=== PATIENT | female | born 1955 | race Asian ===

== ENCOUNTER → 2017-06-25 | Outpatient (CLI) | payer OTHER | LOC: FIMAGING 12:45 | PROVIDERS: ATTEND Obstetrics & Gynecology | DX: Z12.31 Encounter for screening mammogram for malignant neoplasm of breast (principal) | CPT/HCPCS: G0202 ==

== ENCOUNTER → 2018-04-23 | Outpatient (CLI) | payer OTHER | LOC: BMCIMAGING 10:16 | PROVIDERS: ATTEND Internal Medicine | DX: M19.041 Primary osteoarthritis, right hand (principal); M19.071 Primary osteoarthritis, right ankle and foot ==

== ENCOUNTER → 2018-08-25 | Outpatient (CLI) | payer OTHER | LOC: FIMAGING 07:58 | PROVIDERS: ATTEND Obstetrics & Gynecology | DX: Z12.31 Encounter for screening mammogram for malignant neoplasm of breast (principal) ==

== ENCOUNTER → 2018-12-02 | Outpatient (CLI) | payer OTHER | LOC: BMCIMAGING 12:14 | PROVIDERS: ATTEND Physician Assistant | DX: R93.6 Abnormal findings on diagnostic imaging of limbs (principal) ==